=== PATIENT | female | born 1955 | race Caucasian/White ===

== ENCOUNTER 2019-02-18 00:02 | Emergency (ER) | payer OTHER, SELFPAY ==
[2019-02-18] MEDS ORDERED: Amlodipine 5 MG TAB ONE (01:31)
== END 2019-02-18 01:34 | disposition home or self-care (01) ==
LOC: ERS 00:02
DX: I10 Essential (primary) hypertension (principal)
CPT/HCPCS: 99283

== ENCOUNTER 2024-08-15 00:03 | Inpatient (IN) | payer MEDICARE ==
[2024-08-15] MEDS ORDERED: methylPREDNISolone Sod Succ/PF 125 MG/2 ML VIAL ONE (00:12)
[2024-08-15] MEDS ORDERED: Nitroglycerin 2% Ointment 1 INCH/1 GM Packet ONE (00:17)
[2024-08-15] MEDS ORDERED: Ipratropium/Albuterol 3 ML NEB ONE (00:19)
[2024-08-15 00:33] LABS: CO2 Tension 38.9 mmHg (35.0-45.0); O2 Tension (PaO2), arterial 522.9 mmHg (> 80.0); pH, Arterial 7.188 (7.35-7.45)
[2024-08-15 00:34] LABS: Actual Bicarbonate (HCO3a) 14.5 mEq/L (22-28); Carboxyhemoglobin (COHb) 1.8 gm% (0.0-3.0); Hematocrit-ABG 34 % (36.0-47.0); Hemoglobin (Hb) 11.5 g/dL (12.0-16.0)
[2024-08-15 00:35] LABS: ALV-art Gradient 111.475 mmHg (0-20); Analyzer IN Cardio ER; Calcium, Ionized (arterial) 0.83 mmol/L (1.12-1.30); Potassium - ABG Lab 3.03 mmol/L (3.70-5.30); Puncture Site Right Radial artery
[2024-08-15 00:37] LABS: #Basophils 0.13 10x3/uL (0.0-0.2); %Basophils 0.6 % (0.0-1.0); %Eosinophils 2.1 % (0.0-10.0); %Lymphocytes 38.1 % (21.0-51.0); %Monocytes 5.7 % (0.0-10.0); %Neutrophils 52.8 % (42.0-75.0); Mean Corpuscular HGB CONC 30.6 g/dL (32.0-36.0); Mean Corpuscular Hemoglobin 30.4 pg (27.0-31.0); Mean Corpuscular Volume 99.4 fL (78.0-98.0); Mean Platelet Volume 10.7 fL (7.4-10.4); Platelet Count 352 10x3/uL (130-400); RBC Distribution Width 14.5 % (11.5-14.5); Red Blood Cell (RBC) Count 3.62 mill/uL (4.20-5.40)
[2024-08-15] MEDS ORDERED: Sodium Bicarb 50 MEQ/50 ML Abboject 8.4% SYRINGE ONE (00:56)
[2024-08-15 01:12] LABS: Actual Bicarbonate (HCO3v) 26.5 mEq/L (22-28); Analyzer IN Cardio ER; Base Excess 3.2 mEq/L (-2.0 to +3.0); Calcium, Ionized (venous) 1.12 mmol/L (1.16-1.32); Chloride (VBG) 100 mmol/L (98-106); Hematocrit-VBG 37 % (36.0-47.0); Hemoglobin (Hb) 12.5 g/dL (11.7-16.1); Potassium (VBG) 3.65 mmol/L (3.70-5.30); Sodium 136 mmol/L (133-146); pH (venous) 7.487 (7.32-7.43)
[2024-08-15 01:20] LABS: ALT (SGPT) 11 U/L (8-55); AST (SGOT) 26 U/L (5-34); Albumin 3.1 g/dL (3.4-4.8); Alkaline Phosphatase 103 U/L (40-110); Anion Gap 27 mmol/L (10-20); BUN (Urea Nitrogen) 11 mg/dL (9.8-20.1); Bilirubin, Total 0.2 mg/dL (0.2-1.2); Calc. Creatinine Clearance 0 mL/min (70-130); Calcium 6.9 mg/dL (7.8-10.44); Carbon Dioxide 12 mmol/L (23-31); Chloride 105 mmol/L (98-107); Estimated GFR 41; Globulin 3.4 g/dL (2.4-3.5); Glucose 294 mg/dL (80-115); Potassium 3.1 mmol/L (3.5-5.1); Protein, Total 6.5 g/dL (5.8-8.1); Sodium 141 mmol/L (136-145); Troponin I 0.281 ng/mL (< 0.028)
[2024-08-15 01:40] LABS: Actual Bicarbonate (HCO3v) 24.4 mEq/L (22-28); Analyzer IN Cardio ER; Base Excess -2.2 mEq/L (-2.0 to +3.0); Chloride (VBG) 104 mmol/L (98-106); Hematocrit-VBG 34 % (36.0-47.0); Hemoglobin (Hb) 11.6 g/dL (11.7-16.1); Potassium (VBG) 2.96 mmol/L (3.70-5.30); Sodium 145 mmol/L (133-146); pH (venous) 7.309 (7.32-7.43)
[2024-08-15 01:41] LABS: Calcium, Ionized (venous) 0.76 mmol/L (1.16-1.32)
[2024-08-15] MEDS ORDERED: Furosemide 40 MG (4 mL) VIAL ONE (02:35)
[2024-08-15] MEDS ORDERED: CALCIUM GLUC 1 GM/NS 50 ML IV Bag ONE (02:35)
[2024-08-15] MEDS ORDERED: Heparin 5,000 UNITS/ML VIAL ONE (03:19)
[2024-08-15] MEDS ORDERED: Heparin 25,000 units/D5W 500 ML ONE (03:19)
[2024-08-15 04:03] LABS: #Basophils 0.05 10x3/uL (0.0-0.2); #Eosinophils Less than 0.03 10x3/uL (0.0-0.7); %Basophils 0.2 % (0.0-1.0); %Lymphocytes 3.2 % (21.0-51.0); %Monocytes 2.1 % (0.0-10.0); %Neutrophils 93.8 % (42.0-75.0); Hematocrit 32.8 % (36.0-47.0); Hemoglobin 10.7 g/dL (12.0-16.0); Mean Corpuscular HGB CONC 32.6 g/dL (32.0-36.0); Mean Corpuscular Hemoglobin 30.3 pg (27.0-31.0); Mean Corpuscular Volume 92.9 fL (78.0-98.0); Mean Platelet Volume 10.2 fL (7.4-10.4); Platelet Count 307 10x3/uL (130-400); Prothrombin Time 12.8 sec (12.0-14.7); RBC Distribution Width 14.6 % (11.5-14.5); Red Blood Cell (RBC) Count 3.53 mill/uL (4.20-5.40)
[2024-08-15 04:04] LABS: PTT 31.7 sec (22.9-36.1)
[2024-08-15 04:12] LABS: Lactic Acid 3.36 mmol/L (0.5-2.2)
[2024-08-15 04:17] LABS: ALT (SGPT) 16 U/L (8-55); AST (SGOT) 36 U/L (5-34); Albumin 3.2 g/dL (3.4-4.8); Alkaline Phosphatase 98 U/L (40-110); Anion Gap 19 mmol/L (10-20); BUN (Urea Nitrogen) 13 mg/dL (9.8-20.1); Bilirubin, Total 0.2 mg/dL (0.2-1.2); Calc. Creatinine Clearance 0 mL/min (70-130); Calcium 6.7 mg/dL (7.8-10.44); Carbon Dioxide 24 mmol/L (23-31); Chloride 106 mmol/L (98-107); Estimated GFR 45; Globulin 3.4 g/dL (2.4-3.5); Glucose 161 mg/dL (80-115); Potassium 2.7 mmol/L (3.5-5.1); Protein, Total 6.6 g/dL (5.8-8.1); Sodium 146 mmol/L (136-145)
[2024-08-15] MEDS ORDERED: Ipratropium/Albuterol 3 ML NEB NEB PRN (04:25)
[2024-08-15 04:26] VITALS: BMI 22.6
[2024-08-15] MEDS ORDERED: Electrolyte Replacement Protocol 1 EACH FS PRN (04:43)
[2024-08-15] MEDS ORDERED: Heparin 10,000 UNITS/ 10 ML VIAL SLOW IVP SCH (04:45)
[2024-08-15] MEDS ORDERED: CALCIUM GLUC 1 GM/NS 50 ML 1 GM in Premix 1 BAG IVPB SCH (05:00)
[2024-08-15 05:08] LABS: Troponin I 2.468 ng/mL (< 0.028)
[2024-08-15 05:17] LABS: Hematocrit 32.9 % (36.0-47.0); Hemoglobin 10.8 g/dL (12.0-16.0); Platelet Count 298 10x3/uL (130-400)
[2024-08-15 07:09] LABS: Magnesium Less than 0.6 mg/dL (1.6-2.6)
[2024-08-15] MEDS: Potassium Chloride 20 MEQ (100 mL) BAG ONE (07:59)
[2024-08-15] MEDS: Magnesium 2 GM/50 ML BAG (IN WATER) ONE (07:59)
[2024-08-15 08:05] LABS: Troponin I 3.527 ng/mL (< 0.028)
[2024-08-15] MEDS: Azithromycin 500 MG in Sodium Chloride 0.9% 250 ML 250 ML IVPB SCH (09:32)
[2024-08-15] MEDS: cefTRIAXone\\ROCEPHIN 1 GM in Sodium Chloride 0.9% 100 ML IVPB SCH (09:33)
[2024-08-15] MEDS: Potassium Chloride 20 MEQ in Premix 1 BAG IVPB SCH (09:34)
[2024-08-15] MEDS: MAGNESIUM IVPB SCH (09:34)
[2024-08-15] MEDS: SODIUM CHLORIDE 0.9% IVPB SCH (09:34)
[2024-08-15] MEDS: Metoprolol Tartrate 25 MG TAB ONE (09:38)
[2024-08-15] MEDS: Calcium Gluconate 4.6 MEQ in Sodium Chloride 0.9% 100 ML IVPB ONE ×2 (10:30→16:01)
[2024-08-15] MEDS: CALCIUM GLUC 1 GM/NS 50 ML IV Bag ONE (10:30)
[2024-08-15] MEDS: Metoprolol Tartrate 25 MG TAB PO SCH ×2 (10:30→20:13)
[2024-08-15] MEDS: CALCIUM GLUC 1 GM/NS 50 ML 1 GM in Premix 1 BAG IVPB SCH ×2 (11:09→16:01)
[2024-08-15] MEDS: FLU (Fluad Triv) TS24-25 (65UP)/MF59C/PF 45 MCG/0.5 ML Syringe IM ONE (11:09)
[2024-08-15 12:01] LABS: PTT 178.9 sec (22.9-36.1)
[2024-08-15] MEDS: Lorazepam 2 MG/ML VIAL ONE (12:15)
[2024-08-15] MEDS ORDERED: Furosemide 40 MG (4 mL) VIAL SLOW IVP SCH (14:00)
[2024-08-15] MEDS ORDERED: Electrolyte Replacement Protocol FS PRN (14:30)
[2024-08-15 14:38] LABS: Anion Gap 20 mmol/L (10-20); BUN (Urea Nitrogen) 16 mg/dL (9.8-20.1); Calc. Creatinine Clearance 44 mL/min (70-130); Calcium 6.8 mg/dL (7.8-10.44); Carbon Dioxide 20 mmol/L (23-31); Chloride 106 mmol/L (98-107); Estimated GFR 46; Glucose 164 mg/dL (80-115); Magnesium 2.2 mg/dL (1.6-2.6); Potassium 4.4 mmol/L (3.5-5.1); Sodium 142 mmol/L (136-145)
[2024-08-15] MEDS: Furosemide 40 MG (4 mL) VIAL SLOW IVP SCH (15:34)
[2024-08-15 18:30] LABS: ALT (SGPT) 26 U/L (8-55); AST (SGOT) 55 U/L (5-34); Albumin 2.9 g/dL (3.4-4.8); Alkaline Phosphatase 86 U/L (40-110); Anion Gap 20 mmol/L (10-20); BUN (Urea Nitrogen) 17 mg/dL (9.8-20.1); Bilirubin, Total 0.3 mg/dL (0.2-1.2); Calc. Creatinine Clearance 47 mL/min (70-130); Carbon Dioxide 23 mmol/L (23-31); Chloride 106 mmol/L (98-107); Estimated GFR 50; Globulin 3.2 g/dL (2.4-3.5); Glucose 127 mg/dL (80-115); Magnesium 2.1 mg/dL (1.6-2.6); Potassium 4.3 mmol/L (3.5-5.1); Protein, Total 6.1 g/dL (5.8-8.1); Sodium 145 mmol/L (136-145)
[2024-08-15] MEDS: Atorvastatin Calcium 40 MG TAB PO SCH (20:13)
[2024-08-15] MEDS ORDERED: Metoprolol Tartrate 25 MG TAB PO SCH (21:00)
[2024-08-16 02:34] LABS: #Basophils Less than 0.03 10x3/uL (0.0-0.2); #Eosinophils Less than 0.03 10x3/uL (0.0-0.7); %Basophils 0.1 % (0.0-1.0); %Lymphocytes 5.9 % (21.0-51.0); %Monocytes 4.6 % (0.0-10.0); %Neutrophils 88.7 % (42.0-75.0); Hematocrit 28.2 % (36.0-47.0); Hemoglobin 9.5 g/dL (12.0-16.0); Mean Corpuscular HGB CONC 33.7 g/dL (32.0-36.0); Mean Corpuscular Hemoglobin 30.7 pg (27.0-31.0); Mean Corpuscular Volume 91.3 fL (78.0-98.0); Mean Platelet Volume 10.7 fL (7.4-10.4); Platelet Count 254 10x3/uL (130-400); RBC Distribution Width 14.9 % (11.5-14.5); Red Blood Cell (RBC) Count 3.09 mill/uL (4.20-5.40)
[2024-08-16 02:52] LABS: Anion Gap 17 mmol/L (10-20); BUN (Urea Nitrogen) 21 mg/dL (9.8-20.1); Calc. Creatinine Clearance 50 mL/min (70-130); Carbon Dioxide 24 mmol/L (23-31); Chloride 104 mmol/L (98-107); Estimated GFR 54; Glucose 130 mg/dL (80-115); Magnesium 1.9 mg/dL (1.6-2.6); Sodium 141 mmol/L (136-145)
[2024-08-16] MEDS: Furosemide 40 MG (4 mL) VIAL SLOW IVP SCH (05:43)
[2024-08-16] MEDS: ALPRAZolam 0.25 MG TAB PO PRN (05:55)
[2024-08-16] MEDS: CALCIUM GLUC 1 GM/NS 50 ML 1 GM in Premix 1 BAG IVPB SCH (05:55)
[2024-08-16] MEDS: Calcium Gluconate 4.6 MEQ in Sodium Chloride 0.9% 100 ML IVPB ONE (06:05)
[2024-08-16] MEDS: Magnesium 2 GM/50 ML(in water) 2 GM in Premix 1 BAG IVPB SCH (10:01)
[2024-08-16] MEDS: Aspirin 81 mg Enteric Coated Tablet PO SCH (10:02)
[2024-08-16 16:45] LABS: Troponin I 3.595 ng/mL (< 0.028)
[2024-08-16 18:11] LABS: Critical Call Chem Troponin I RESULT DECREASING; Troponin I 2.718 ng/mL (< 0.028)
[2024-08-16] MEDS: Heparin 25,000 units/D5W 500 ML IVPB SCH (23:28)
[2024-08-17 10:38] LABS: Hematocrit 32.9 % (36.0-47.0); Hemoglobin 10.5 g/dL (12.0-16.0); Platelet Count 273 10x3/uL (130-400)
[2024-08-17 10:39] LABS: #Basophils Less than 0.03 10x3/uL (0.0-0.2); %Basophils 0.2 % (0.0-1.0); %Eosinophils 0.8 % (0.0-10.0); %Lymphocytes 23.4 % (21.0-51.0); %Monocytes 7.6 % (0.0-10.0); %Neutrophils 67.5 % (42.0-75.0); Hematocrit 31.7 % (36.0-47.0); Hemoglobin 10.2 g/dL (12.0-16.0); Mean Corpuscular HGB CONC 32.2 g/dL (32.0-36.0); Mean Corpuscular Hemoglobin 30.6 pg (27.0-31.0); Mean Corpuscular Volume 95.2 fL (78.0-98.0); Mean Platelet Volume 10.6 fL (7.4-10.4); Platelet Count 276 10x3/uL (130-400); RBC Distribution Width 14.6 % (11.5-14.5); Red Blood Cell (RBC) Count 3.33 mill/uL (4.20-5.40)
[2024-08-17 11:00] LABS: Anion Gap 14 mmol/L (10-20); BUN (Urea Nitrogen) 21 mg/dL (9.8-20.1); Calc. Creatinine Clearance 62 mL/min (70-130); Calcium 7.9 mg/dL (7.8-10.44); Carbon Dioxide 30 mmol/L (23-31); Chloride 100 mmol/L (98-107); Estimated GFR 72; Glucose 96 mg/dL (80-115); Potassium 3.3 mmol/L (3.5-5.1); Sodium 141 mmol/L (136-145)
[2024-08-17] MEDS: Potassium Chloride 20 MEQ TAB PO SCH (14:07)
[2024-08-17] MEDS: predniSONE 50 MG TAB PO SCH ×2 (16:36→16:37)
[2024-08-18 06:29] LABS: #Basophils Less than 0.03 10x3/uL (0.0-0.2); #Eosinophils Less than 0.03 10x3/uL (0.0-0.7); %Basophils 0.1 % (0.0-1.0); %Lymphocytes 12.1 % (21.0-51.0); %Monocytes 3.7 % (0.0-10.0); %Neutrophils 83.7 % (42.0-75.0); Hemoglobin 10.9 g/dL (12.0-16.0); Mean Corpuscular HGB CONC 32.1 g/dL (32.0-36.0); Mean Corpuscular Hemoglobin 29.5 pg (27.0-31.0); Mean Corpuscular Volume 91.9 fL (78.0-98.0); Mean Platelet Volume 10.8 fL (7.4-10.4); Platelet Count 279 10x3/uL (130-400); RBC Distribution Width 14.1 % (11.5-14.5)
[2024-08-18 06:55] LABS: Anion Gap 15 mmol/L (10-20); BUN (Urea Nitrogen) 19 mg/dL (9.8-20.1); Calc. Creatinine Clearance 0 mL/min (70-130); Calcium 8.7 mg/dL (7.8-10.44); Carbon Dioxide 27 mmol/L (23-31); Chloride 101 mmol/L (98-107); Estimated GFR 80; Glucose 122 mg/dL (80-115); Potassium 4.6 mmol/L (3.5-5.1); Sodium 138 mmol/L (136-145)
[2024-08-18] MEDS: Lisinopril 2.5 MG TAB PO SCH (08:16)
[2024-08-18] MEDS: Sodium Chloride 0.9% 1,000 ML IV SCH ×2 (11:04→14:19)
[2024-08-18] MEDS ORDERED: Midazolam HCl 2 mg/2 ml Vial ONE (11:47)
[2024-08-18] MEDS ORDERED: Heparin 10,000 UNITS/ 10 ML VIAL ONE (11:47)
[2024-08-18] MEDS ORDERED: fentaNYL 50 mcg/mL 1 mL Vial ONE (11:47)
[2024-08-18] MEDS ORDERED: Adenosine 6 mg (2 mL) VIAL ONE (11:48)
[2024-08-18] MEDS ORDERED: Verapamil 5 MG/2 ML VIAL ONE (11:48)
[2024-08-18] MEDS ORDERED: Nitroglycerin 50 MG/250 ML BOT 0 ML ONE (11:48)
[2024-08-18] MEDS ORDERED: Acetaminophen/Codeine 30-300mg Tablet PO PRN ×4 (14:08)
[2024-08-18] MEDS ORDERED: Nitroglycerin 0.4 MG TAB (25 Tab Bottle) SL PRN ×2 (14:08)
[2024-08-18] MEDS ORDERED: Sodium Chloride 0.9% 200 ML IV PRN ×2 (14:08)
[2024-08-18] MEDS ORDERED: Sodium Chloride 0.9% 1,000 ML IV SCH (14:15)
[2024-08-19 05:49] LABS: Hematocrit 34.4 % (36.0-47.0); Hemoglobin 11.3 g/dL (12.0-16.0); Platelet Count 291 10x3/uL (130-400)
[2024-08-19 06:24] LABS: Anion Gap 13 mmol/L (10-20); BUN (Urea Nitrogen) 20 mg/dL (9.8-20.1); Calc. Creatinine Clearance 66 mL/min (70-130); Calcium 9.2 mg/dL (7.8-10.44); Carbon Dioxide 28 mmol/L (23-31); Chloride 101 mmol/L (98-107); Estimated GFR 74; Glucose 92 mg/dL (80-115); Potassium 3.6 mmol/L (3.5-5.1); Sodium 138 mmol/L (136-145)
[2024-08-19] MEDS: Spironolactone 25 MG TAB PO SCH (08:39)
[2024-08-19] MEDS: Empagliflozin 10 MG TAB PO SCH (08:39)
[2024-08-19] MEDS: Nicotine 14 MG PATCH TD SCH (17:45)
[2024-08-19] MEDS: Senokot S 8.6-50 MG TAB PO SCH (21:04)
[2024-08-20 04:51] LABS: Anion Gap 14 mmol/L (10-20); BUN (Urea Nitrogen) 25 mg/dL (9.8-20.1); Calc. Creatinine Clearance 62 mL/min (70-130); Calcium 9.2 mg/dL (7.8-10.44); Carbon Dioxide 30 mmol/L (23-31); Chloride 98 mmol/L (98-107); Estimated GFR 69; Glucose 98 mg/dL (80-115); Potassium 3.1 mmol/L (3.5-5.1); Sodium 139 mmol/L (136-145)
[2024-08-20] MEDS: Potassium Chloride 20 MEQ TAB PO SCH (08:51)
[2024-08-20] MEDS: Cefdinir 300 MG CAP PO SCH (20:38)
[2024-08-21 06:09] LABS: Hematocrit 38.2 % (36.0-47.0); Hemoglobin 12.6 g/dL (12.0-16.0); Platelet Count 328 10x3/uL (130-400)
[2024-08-21 06:29] LABS: Anion Gap 16 mmol/L (10-20); BUN (Urea Nitrogen) 29 mg/dL (9.8-20.1); Calc. Creatinine Clearance 55 mL/min (70-130); Calcium 9.6 mg/dL (7.8-10.44); Carbon Dioxide 32 mmol/L (23-31); Chloride 97 mmol/L (98-107); Estimated GFR 59; Glucose 89 mg/dL (80-115); Potassium 3.8 mmol/L (3.5-5.1); Sodium 141 mmol/L (136-145)
[2024-08-21] MEDS: predniSONE 20 MG TAB PO SCH (09:56)
[2024-08-21 14:36] VITALS: TEMP 97.4
[2024-08-21 15:35] VITALS: BMI 22.7
[2024-08-21 17:41] VITALS: BP 148/80
[2024-08-21] MEDS ORDERED: Sacubitril 24MG/Valsartan 26 MG TAB PO SCH (21:00)
== END 2024-08-21 21:05 | disposition short-term general hospital (02) | DRG 280 ==
LOC: ERS 00:03 → IMCU/EMU 02:42 → PCU 08-17 18:26
PROVIDERS: ADMIT Student in an Organized Health Care Education/Training Program; ATTEND Internal Medicine
PROC: 4A033R1 Measurement of Arterial Saturation, Peripheral, Percutaneous Approach (ICD-10-PCS; 2024-08-15)
PROC: 4A023N7 Measurement of Cardiac Sampling and Pressure, Left Heart, Percutaneous Approach (ICD-10-PCS; principal; 2024-08-18)
PROC: B2111ZZ Fluoroscopy of Multiple Coronary Arteries using Low Osmolar Contrast (ICD-10-PCS; 2024-08-18)
PROC: B4101ZZ Fluoroscopy of Abdominal Aorta using Low Osmolar Contrast (ICD-10-PCS; 2024-08-18)
PROC: B2151ZZ Fluoroscopy of Left Heart using Low Osmolar Contrast (ICD-10-PCS; 2024-08-18)
DX: I11.0 Hypertensive heart disease with heart failure (principal); I50.21 Acute systolic (congestive) heart failure; I21.4 Non-ST elevation (NSTEMI) myocardial infarction; J18.9 Pneumonia, unspecified organism; J96.01 Acute respiratory failure with hypoxia; I63.9 Cerebral infarction, unspecified; E87.20 Acidosis, unspecified; N17.9 Acute kidney failure, unspecified; F03.94 Unspecified dementia, unspecified severity, with anxiety; J44.0 Chronic obstructive pulmonary disease with (acute) lower respiratory infection; R73.9 Hyperglycemia, unspecified; E87.6 Hypokalemia; F17.210 Nicotine dependence, cigarettes, uncomplicated; E83.51 Hypocalcemia; I25.110 Atherosclerotic heart disease of native coronary artery with unstable angina pectoris; F03.90 Unspecified dementia, unspecified severity, without behavioral disturbance, psychotic disturbance, mood disturbance, and anxiety; E83.42 Hypomagnesemia; I25.5 Ischemic cardiomyopathy; Z71.6 Tobacco abuse counseling; Z86.73 Personal history of transient ischemic attack (TIA), and cerebral infarction without residual deficits
CPT/HCPCS: 36216; 36225; 36415; 36600; 70496; 70498; 70551; 71045; 71260; 75710; 80048; 80053; 82805; 83605; 83735; 83880; 84484; 85014; 85018; 85025; 85049; 85347; 85610; 85730; 93005; 93010; 93306; 93458; 93459; 93798; 93880; 94660; 94760; 96374; 96375; 99152; 99153; C1769; C1887; C1894; J0153; J0456; J0613; J0696; J1644; J1940; J2060; J2250; J2919; J3010; J3475; J3480; J7050; J7512; J7620